=== PATIENT | male | born 1965 | race Caucasian/White ===

== ENCOUNTER 2020-08-16 08:59 | Emergency (ER) | payer BC ==
[~2020-08-16] VITALS: Ht 188 cm; Wt 85.5 kg
--- NOTE | 2020-08-16 09:33 | NUR ---
PT HAS CO NEW ONSET OF DIZZINESS, WEAKNESS, AND MUSCLE CRAMPS IN SHOWER THIS AM. WORKED OUT AND DID NOT EAT ANYTHING PRIOR. DENIES CP OR SOB ecg in triage placed on awake overnight monitor-vss
[2020-08-16 09:59] LABS: BASOPHILS % (AUTO) 1 % (0-1); EOSINOPHILS % (AUTO) 4 % (1-7); LYMPHOCYTES % (AUTO) 28 % (22-44); MEAN CORPUSCULAR HGB CONC 34.2 g/dL (33.2-36.2); MEAN PLATELET VOLUME 9.2 fL (7.4-10.4); MONOCYTES % (AUTO) 8 % (2-9); NEUTROPHILS % (AUTO) 60 % (42-75); PLATELET COUNT 234 x10^3/uL (130-400); RED BLOOD COUNT 4.78 x10^6/uL (4.38-5.82); RED CELL DISTRIBUTION WIDTH 13.1 % (9.4-14.8)
[2020-08-16 10:00] LABS: MD NO
[2020-08-16] MEDS ORDERED: SODIUM CHLORIDE 0.9% 1,000ML IVBOLUS ONE (10:00)
[2020-08-16 10:02] LABS: ALANINE AMINOTRANSFERASE 34 U/L (12-78); ALBUMIN 3.8 g/dL (3.4-5.0); ANION GAP 5 mmol/L (5-15); CALCIUM 9.1 mg/dL (8.5-10.1); CHLORIDE 108 mmol/L (98-107); CREATININE 0.96 mg/dL (0.7-1.3)
[2020-08-16 10:13] LABS: ALKALINE PHOSPHATASE 37 U/L (45-117); BILIRUBIN,TOTAL 0.8 mg/dL (0.2-1.0); T4 (THYROXINE) 3.5 mcg/dL (4.5-12.1); TOTAL PROTEIN 7.4 g/dL (6.4-8.2)
[2020-08-16 11:13] VITALS: BP 114/76
--- NOTE | 2020-08-16 11:13 | NUR ---
Pt states feeling improvement with tremors, muscle fatigue. Updated on POC.
== END 2020-08-16 11:40 | disposition home or self-care (01) ==
LOC: ED 09:50 → MERGE 09:50 → ED 11:40
DX: R55 Syncope and collapse (principal); R42 Dizziness and giddiness
CPT/HCPCS: 36415; 80053; 84436; 84443; 84481; 85025; 93005; 96360; 99284; J7030

== ENCOUNTER 2020-08-17 23:45 | Emergency (ER) | payer BC ==
[~2020-08-17] VITALS: Ht 188 cm; Wt 84.5 kg
[2020-08-18] MEDS ORDERED: LORazepam 1MG TABLET ONE (00:42)
--- NOTE | 2020-08-18 00:51 | NUR ---
PHLEB AT BS. EKG COMPLETED. NSR.
[2020-08-18] MEDS ORDERED: LORazepam 1MG TABLET PO ONE (01:00)
--- NOTE | 2020-08-18 01:00 | NUR ---
PT STATES HE FELT GREAT ALL DAY TODAY, THEN THIS EVENING HE FELT LIKE HIS LEGS WERE HOT, DIZZY & TREMORS TO L>R HAND. PT STATES IT FEELS LIKE HIS HEART IS RACING, ON MONITOR..NSR @ 72. PT AWARE OF ELEVATED BP, GIVEN MED PER MAR, WILL CTM. CALL LIGHT INREACH. WILL CTM.
[2020-08-18 01:04] LABS: BASOPHILS % (AUTO) 1 % (0-1); EOSINOPHILS % (AUTO) 4 % (1-7); LYMPHOCYTES % (AUTO) 39 % (22-44); MEAN CORPUSCULAR HEMOGLOBIN 33.1 pg (27.5-34.5); MEAN CORPUSCULAR HGB CONC 34.6 g/dL (33.2-36.2); MEAN PLATELET VOLUME 8.6 fL (7.4-10.4); MONOCYTES % (AUTO) 7 % (2-9); NEUTROPHILS % (AUTO) 49 % (42-75); PLATELET COUNT 264 x10^3/uL (130-400); RED BLOOD COUNT 4.87 x10^6/uL (4.38-5.82); RED CELL DISTRIBUTION WIDTH 12.7 % (9.4-14.8)
[2020-08-18 01:05] LABS: MD NO
[2020-08-18 01:13] LABS: ALANINE AMINOTRANSFERASE 44 U/L (12-78); ANION GAP 4 mmol/L (5-15); CHLORIDE 110 mmol/L (98-107); CREATININE 1.05 mg/dL (0.7-1.3)
[2020-08-18 01:17] LABS: ALKALINE PHOSPHATASE 43 U/L (45-117); BILIRUBIN,TOTAL 0.5 mg/dL (0.2-1.0); CREATINE KINASE, TOTAL 151 U/L (39-308); TOTAL PROTEIN 7.6 g/dL (6.4-8.2); TROPONIN I < 0.015 ng/mL (0.000-0.045)
--- NOTE | 2020-08-18 01:53 | NUR ---
PT SLEEPING. RR EVEN NON LABORED. VSS. WILL CTM.
--- NOTE | 2020-08-18 02:18 | NUR ---
Report from Loco Arias. ERP at bedside.
--- NOTE | 2020-08-18 02:26 | NUR ---
Pt states he feels 100% better than when he came in, upon standing stated he felt "woozy" for a second. VSS. Pt ambulates around, steady gait. DC papers given, pt verbalizes understanding of instruct and f/u. To return to ER if worse or concerns.
[2020-08-18 02:27] VITALS: BP 135/74
== END 2020-08-18 02:31 ==
LOC: ED 08-18 00:41
DX: F41.9 Anxiety disorder, unspecified (principal); R42 Dizziness and giddiness; R53.1 Weakness; R20.0 Anesthesia of skin; E78.00 Pure hypercholesterolemia, unspecified
CPT/HCPCS: 36415; 80053; 82550; 83605; 84484; 85025; 93005; 99284